=== PATIENT | male | born 1955 | race Caucasian/White ===

== ENCOUNTER 2017-01-14 15:16 | Emergency (ER) | payer MEDICARE, OTHER ==
[2017-01-14 15:55] VITALS: BP 132/88
--- NOTE | 2017-01-14 16:23 | EDM.PDOC ---
ED HPI GI/ABDOMINAL - General Chief Complaint: Genitourinary Problem Stated Complaint: KIDNEY STONES Time Seen by Provider: 01/14/17 16:15 Source: Reports: Patient, RN notes reviewed History Limitations: Reports: No limitations - History of Present Illness INITIAL COMMENTS - FREE TEXT/NARRATIVE: 61-year-old gentleman presents emergency department they sent over by his primary care provider in the clinic he presented with right-sided flank pain and hematuria he does have a known history of nephrolithiasis, he's been ill for the last 3 days has had nausea no vomiting however he feels the pain has improved since he's arrived in the emergency department - Related Data Allergies/ADRs: Allergies Allergy/AdvReac Type Severity Reaction Status Date / Time influenza virus vaccine, Allergy Fever Verified 01/14/17 16:04 specific [Influenza Virus Vacc,Specific] lamivudine [From Epivir] Allergy unknown Verified 01/14/17 16:04 lopinavir [From Kaletra] Allergy Rash Verified 01/14/17 16:04 metoclopramide HCl Allergy Cannot Verified 01/14/17 16:04 [From Reglan] Remember nevirapine [From Viramune] Allergy unknown Verified 01/14/17 16:04 NSAIDS (Non-Steroidal Allergy Renal Verified 01/14/17 16:04 Anti-Inflamma Failure ritonavir [From Kaletra] Allergy Rash Verified 01/14/17 16:04 Sulfa (Sulfonamide Allergy Itching Verified 01/14/17 16:04 Antibiotics) alprazolam [From Xanax] AdvReac Depression Verified 01/14/17 16:04 efavirenz [From Sustiva] AdvReac "Can't Verified 01/14/17 16:04 Walk, Bad Dreams" esomeprazole magnesium AdvReac Headache Verified 01/14/17 16:04 [From Nexium] indinavir sulfate AdvReac kidney Verified 01/14/17 16:04 [From Crixivan] stones sertraline HCl [From Zoloft] AdvReac suicidal Verified 01/14/17 16:04 Home Meds: Home Meds Alendronate [Fosamax] 70 mg PO Q7D@0600 01/29/14 [History] Emtricitabine/Tenofovir [Truvada 200 MG-300 MG] 1 tab PO DAILY 01/29/14 [History ] Gabapentin [Neurontin] 300 mg PO TID 01/29/14 [History] Lisinopril 5 mg PO DAILY 01/29/14 [History] Ondansetron [Zofran ODT] 8 mg PO Q6H PRN 01/29/14 [History] Raltegravir [Isentress] 400 mg PO BID 01/29/14 [History] Omeprazole [Omeprazole] 40 mg PO DAILY 03/16/15 [History] SUMAtriptan Succinate [Imitrex] 100 mg PO ASDIRECTED PRN 03/16/15 [History] Verapamil HCl [Verapamil Sr] 1 tab PO DAILY 11/26/15 [History] Escitalopram [Lexapro] 20 mg PO DAILY 08/03/16 [History] Past Medical History Cardiovascular History: Reports: Hypertension Respiratory History: Reports: COPD, Pneumothorax Other Respiratory History: "little bit of damage on left lung" unknown exactly what it is but does not cause issues Gastrointestinal History: Reports: Other (see below) Other Gastrointestinal History: gastroparesis Genitourinary History: Reports: Renal calculus, STD, UTI, recurrent Musculoskeletal History: Reports: Osteoporosis Neurological History: Reports: Concussion, Migraines, Neuropathy, peripheral, Other (see below) Other Neuro History: trace elements of Multiple Sclerosis Psychiatric History: Reports: Depression Endocrine/Metabolic History: Reports: Other (see below) Other Endocrine/Metabolic History: due to stomach not emptying, pancreas secrete too much insulin and pt gets hypo - pt is seeing surgeon at [facility] regarding this. Hematologic History: Reports: Iron deficiency Other Hematologic History: iron infusion Immunologic History: Reports: HIV, Other (see below) Other Immunologic History: Hep A & B Oncologic (Cancer) History: Reports: None Dermatologic History: Reports: None - Infectious Disease History Infectious Disease History: Reports: Hepatitis A, Hepatitis B, HIV-Human immunodeficiency virus - Past Surgical History Head Surgeries/Procedures: Reports: None GI Surgical History: Reports: Hernia, abdominal, Hernia, inguinal Male Surgical History: Reports: Kidney stone extraction, Prostate Biopsy Social & Family History - Tobacco Use Smoking Status *Q: Never Smoker Years of Tobacco use: 20 Used Tobacco, but Quit: Yes Month Tobacco Last Used: 2003 Second Hand Smoke Exposure: Yes - Alcohol Use Days Per Week of Alcohol Use: 0 - Recreational Drug Use Recreational Drug Use: No ED ROS GENERAL - Review of Systems Review Of Systems: See Below Constitutional: Reports: no symptoms Respiratory: Reports: no symptoms Cardiovascular: Reports: No symptoms GI/Abdominal: Reports: Nausea : Reports: flank pain, hematuria Musculoskeletal: Reports: no symptoms Skin: Reports: no symptoms ED EXAM, GI/ABD - Physical Exam Exam: See Below Exam Limited By: No limitations General Appearance: alert, WD/WN, no apparent distress Neck: normal inspection, supple, non-tender, full range of motion Respiratory/Chest: no respiratory distress, lungs clear, normal breath sounds, no accessory muscle use, chest non-tender Cardiovascular: normal peripheral pulses, regular rate, rhythm, no murmur GI/Abdominal: soft, no organomegaly, no distention, no abnormal bruit, no mass, tenderness (right flank) Course - Vital Signs Last Recorded V/S: Last Vital Signs Temp 97.2 F 01/14/17 16:02 Pulse 82 01/14/17 16:02 Resp 16 01/14/17 16:02 BP 132/88 01/14/17 16:02 Pulse Ox 98 01/14/17 16:02 - Orders/Labs/Meds Orders: Active Orders 24 hr Category Date Time Status Abdomen Pelvis wo Cont [CT] Stat Exams 01/14/17 16:20 Taken CULTURE URINE [RM] Urgent Lab 01/14/17 18:15 Ordered Labs: Laboratory Tests 01/14/17 01/14/17 01/14/17 Range/Units 16:29 16:30 16:30 WBC 10.3 (4.5-11.0) K/uL RBC 4.31 (4.30-5.90) M/uL Hgb 13.5 (12.0-15.0) g/dL Hct 40.3 (40.0-54.0) % MCV 94 (80-98) fL MCH 31 (27-31) pg MCHC 34 (32-36) % Plt Count 245 (150-400) K/uL Neut % (Auto) 68 H (36-66) % Lymph % (Auto) 23 L (24-44) % Clare % (Auto) 8 H (2-6) % Eos % (Auto) 1 L (2-4) % Baso % (Auto) 0 (0-1) % Sodium 139 L (140-148) mmol/L Potassium 4.0 (3.6-5.2) mmol/L Chloride 105 (100-108) mmol/L Carbon Dioxide 26 (21-32) mmol/L Anion Gap 12.0 (5.0-14.0) mmol/L BUN 14 (7-18) mg/dL Creatinine 1.3 (0.8-1.3) mg/dL Est Cr Clr Drug Dosing 45.50 mL/min Estimated GFR (MDRD) 56 L (>60) Glucose 96 (74-106) mg/dL Calcium 8.5 (8.5-10.1) mg/dL Urine Color Yellow Urine Appearance Turbid Urine pH 6.0 (4.5-8.0) Ur Specific [place] 1.010 (1.008-1.030) Urine Protein Trace (NEGATIVE) mg/dL Urine Glucose (UA) Normal (NEGATIVE) mg/dL Urine Ketones Negative (NEGATIVE) mg/dL Urine Occult Blood Large (NEGATIVE) Urine Nitrite Negative (NEGAITVE) Urine Bilirubin Negative (NEGATIVE) Urine Urobilinogen Normal (NORMAL) mg/dL Ur Leukocyte Esterase Large (NEGATIVE) Urine RBC 50-75 H (0-5) Urine WBC >100 H (0-5) Ur Epithelial Cells Rare Amorphous Sediment Rare Urine Bacteria Rare Urine Mucus Rare Departure - Departure Time of Disposition: 18:20 Disposition: Home, Self-Care 01 Condition: good Clinical Impression: UTI, Urinary tract infectious disease Forms: ED Department Discharge Additional Instructions: take full course of antibiotics, Please followup with your primary care provider in 3-5 days if not better, please call return to the emergency department with worsening of symptoms. - My Orders Last 24 Hours: My Active Orders 01/14/17 16:20 Abdomen Pelvis wo Cont [CT] Stat 01/14/17 18:15 CULTURE URINE [RM] Urgent - Assessment/Plan Last 24 Hours: My Active Orders 01/14/17 16:20 Abdomen Pelvis wo Cont [CT] Stat 01/14/17 18:15 CULTURE URINE [RM] Urgent Plan: Assessment Acuity = acute Site and laterality = urinary tract infection Etiology = suspicious for bacterial cause Manifestations =dysuria Location of injury = [home Lab values = CBC within normal limits sodium low at 139 consistent hyponatremia urinalysis reveals 50-70 rbc's consistent with hematuria greater than 100 WBCs consistent with pyuria culture is pending, CT scan shows no acute process Plan I did review lab results and CT scan with him he was on ciprofloxacin about a month ago for a dental infection and he has an allergy to sulfa elected to treat him with Levaquin 500 mg daily x5 days, follow up with primary care 3-5 days if no improvement Patient was in agreement with the plan all questions were answered, they were instructed to return to the emergency department or call for worsening symptoms. This note was dictated using [employer] voice recognition software please call with any questions.
== END 2017-01-14 18:35 | disposition home or self-care (01) ==
LOC: JP.ED 15:16
DX: N39.0 Urinary tract infection, site not specified (principal); I10 Essential (primary) hypertension; J44.9 Chronic obstructive pulmonary disease, unspecified; F32.9 Major depressive disorder, single episode, unspecified; E61.1 Iron deficiency; B20 Human immunodeficiency virus [HIV] disease; Z79.899 Other long term (current) drug therapy; Z88.8 Allergy status to other drugs, medicaments and biological substances; Z86.19 Personal history of other infectious and parasitic diseases
CPT/HCPCS: 36415; 74176; 80048; 81001; 85025; 87086; 99283; 99284-25

== ENCOUNTER 2017-03-30 09:42 | Emergency (ER) | payer MEDICARE, OTHER ==
[2017-03-30 10:17] VITALS: BP 140/99
[2017-03-30] MEDS ORDERED: Bacitracin Oint 1 GM U/D Packet TOP ONE (10:41)
--- NOTE | 2017-03-30 10:44 | EDM.PDOC ---
ED HPI GENERAL MEDICAL PROBLEM - General Chief Complaint: Bite:Animal, Insect Stated Complaint: R LEG INSECT BITE Time Seen by Provider: 03/30/17 10:13 Source of Information: Reports: Patient History Limitations: Reports: No Limitations - History of Present Illness INITIAL COMMENTS - FREE TEXT/NARRATIVE: Patient noticed a lesions on the inner aspect of the right thigh. He thought it might have been a mosquito bite. And now appears that he did have a spider bite. Onset: Unknown/Unsure Duration: Hour(s):, Constant Location: Reports: Lower Extremity, Right Quality: Reports: Other (Firmness redness mild tenderness) Severity: Mild Improves with: Reports: None Worsens with: Reports: None Context: Reports: Other (Outside activity, moving a woodpile) Associated Symptoms: Reports: No Other Symptoms Right Leg Pain Score (Numeric/FACES): 3 - Related Data Allergies Allergy/AdvReac Type Severity Reaction Status Date / Time influenza virus vaccine, Allergy Fever Verified 03/30/17 10:00 specific [Influenza Virus Vacc,Specific] lamivudine [From Epivir] Allergy unknown Verified 03/30/17 10:00 lopinavir [From Kaletra] Allergy Rash Verified 03/30/17 10:00 metoclopramide HCl Allergy Cannot Verified 03/30/17 10:00 [From Reglan] Remember nevirapine [From Viramune] Allergy unknown Verified 03/30/17 10:00 NSAIDS (Non-Steroidal Allergy Renal Verified 03/30/17 10:00 Anti-Inflamma Failure ritonavir [From Kaletra] Allergy Rash Verified 03/30/17 10:00 Sulfa (Sulfonamide Allergy Itching Verified 03/30/17 10:00 Antibiotics) alprazolam [From Xanax] AdvReac Depression Verified 03/30/17 10:00 efavirenz [From Sustiva] AdvReac "Can't Verified 03/30/17 10:00 Walk, Bad Dreams" esomeprazole magnesium AdvReac Headache Verified 03/30/17 10:00 [From Nexium] indinavir sulfate AdvReac kidney Verified 03/30/17 10:00 [From Crixivan] stones sertraline HCl [From Zoloft] AdvReac suicidal Verified 03/30/17 10:00 Home Meds: Home Meds Alendronate [Fosamax] 70 mg PO Q7D@0600 01/29/14 [History] Gabapentin [Neurontin] 300 mg PO TID 01/29/14 [History] Lisinopril 5 mg PO DAILY 01/29/14 [History] Ondansetron [Zofran ODT] 8 mg PO Q6H PRN 01/29/14 [History] Raltegravir [Isentress] 400 mg PO BID 01/29/14 [History] Omeprazole [Omeprazole] 40 mg PO DAILY 03/16/15 [History] SUMAtriptan Succinate [Imitrex] 100 mg PO ASDIRECTED PRN 03/16/15 [History] DULoxetine [Cymbalta] 30 mg PO DAILY 03/30/17 [History] Emtricitabine/Tenofov Alafenam [Descovy 200-25 mg Tablet] 1 tab PO DAILY [History] Metoprolol Succinate [Toprol XL 100mg] 1 tab PO BEDTIME 03/30/17 [History] Past Medical History HEENT History: Reports: Impaired Vision Cardiovascular History: Reports: Hypertension Respiratory History: Reports: COPD, Pneumothorax Other Respiratory History: "little bit of damage on left lung" unknown exactly what it is but does not cause issues emphesema Gastrointestinal History: Reports: Other (See Below) Other Gastrointestinal History: gastroporesis Genitourinary History: Reports: Acute Renal Failure, Renal Calculus, STD, UTI, Recurrent Musculoskeletal History: Reports: Osteoporosis Neurological History: Reports: Concussion, Migraines, Neuropathy, Peripheral, Other (See Below) Other Neuro History: trace elements of Multiple Sclerosis Psychiatric History: Reports: Depression Endocrine/Metabolic History: Reports: Other (See Below) Other Endocrine/Metabolic History: HIV hepititis A and B Hematologic History: Reports: Iron Deficiency Other Hematologic History: iron infusion Immunologic History: Reports: HIV, Other (See Below) Other Immunologic History: Hep A & B Oncologic (Cancer) History: Reports: None Dermatologic History: Reports: None - Infectious Disease History Infectious Disease History: Reports: Chicken Pox, Measles, Mumps, Shingles - Past Surgical History Head Surgeries/Procedures: Reports: None GI Surgical History: Reports: Hernia, Abdominal, Hernia, Inguinal Male Surgical History: Reports: Kidney Stone Extraction, Prostate Biopsy Social & Family History - Tobacco Use Smoking Status *Q: Never Smoker Years of Tobacco use: 20 Used Tobacco, but Quit: Yes Month Tobacco Last Used: 2003 Second Hand Smoke Exposure: Yes - Caffeine Use Caffeine Use: Reports: Coffee, Tea - Alcohol Use Days Per Week of Alcohol Use: 1 Number of Drinks Per Day: 2 Total Drinks Per Week: 2 - Recreational Drug Use Recreational Drug Use: No ED ROS GENERAL - Review of Systems Review Of Systems: See Below Constitutional: Reports: No Symptoms HEENT: Reports: No Symptoms Respiratory: Reports: No Symptoms Cardiovascular: Reports: No Symptoms Endocrine: Reports: No Symptoms GI/Abdominal: Reports: No Symptoms : Reports: No Symptoms Musculoskeletal: Reports: No Symptoms Skin: Reports: Lesions Neurological: Reports: No Symptoms ED EXAM, ANIMAL BITE - Physical Exam Exam: See Below Exam Limited By: No Limitations General Appearance: Alert, WD/WN, Anxious, Mild Distress Eye Exam: Bilateral Eye: Normal Inspection Ears: Normal External Exam, Hearing Grossly Normal Nose: Normal Inspection Throat/Mouth: Normal Inspection, Normal Lips, Normal Voice Head: Atraumatic, Normocephalic Neck: Normal Inspection, Supple Respiratory/Chest: No Respiratory Distress Cardiovascular: Normal Peripheral Pulses, Regular Rate, Rhythm GI/Abdominal: Soft Extremities: Normal Inspection (With the exception of the spider bite inner aspect of the right thigh) Neurological: Alert, Oriented, Normal Cognition Psychiatric: Normal Affect, Normal Mood Skin Exam: Normal Color, Warm/Dry, Other (Spider bite area or induration erythema and central tissue breakdown) Course - Vital Signs Last Recorded V/S: Last Vital Signs Temp 96.5 F 03/30/17 10:16 Pulse 59 L 03/30/17 10:16 Resp 16 03/30/17 10:16 BP 140/99 H 03/30/17 10:16 Pulse Ox 100 03/30/17 10:16 - Orders/Labs/Meds Meds: Medications Discontinued Medications Generic Name Dose Route Start Last Admin Trade Name Freq PRN Reason Stop Dose Admin Bacitracin 1 dose 03/30/17 10:41 03/30/17 10:47 Bacitracin Oint 1 Gm TOP 03/30/17 10:42 1 dose ONETIME ONE Administration Departure - Departure Time of Disposition: 10:46 Disposition: Home, Self-Care 01 Condition: good Clinical Impression: Insect bite - Discharge Information Referrals: Yuri Reyes MD [Primary Care Provider] - Forms: ED Department Discharge Additional Instructions: Patient has a lesion on the inner aspect of the right thigh. The central area appears to be tissue destruction in the area of induration and erythema around it this is consistent with a spider bite. The wound is covered with bacitracin and Band-Aid and the patient placed on Keflex 500 mg 4 times a day for 10 days patient discharged to home Reevaluation is indicated if there is failure to respond to treatment plan. - Problem List & Annotations (1) Insect bite SNOMED Code(s): 705072087 Code(s): W57.XXXA - BIT/STUNG BY NONVENOM INSECT & OTH NONVENOM ARTHROPODS, INIT Status: Acute Priority: Low Current Visit: Yes Qualifiers: Encounter type: initial encounter Qualified Code(s): W57.XXXA - Bitten or stung by nonvenomous insect and other nonvenomous arthropods, initial encounter - Problem List Review Problem List Initiated/Reviewed/Updated: Yes
== END 2017-03-30 11:00 | disposition home or self-care (01) ==
LOC: JP.ED 09:42
DX: S70.361A Insect bite (nonvenomous), right thigh, initial encounter (principal); J44.9 Chronic obstructive pulmonary disease, unspecified; F32.9 Major depressive disorder, single episode, unspecified; Z87.442 Personal history of urinary calculi; Z98.890 Other specified postprocedural states; Z79.899 Other long term (current) drug therapy; Z88.2 Allergy status to sulfonamides; Z88.8 Allergy status to other drugs, medicaments and biological substances; W57.XXXA Bitten or stung by nonvenomous insect and other nonvenomous arthropods, initial encounter
CPT/HCPCS: 99282; 99283

== ENCOUNTER 2017-11-28 17:35 | Emergency (ER) | payer MEDICARE, OTHER ==
--- NOTE | 2017-11-28 21:18 | EDM.PDOC ---
ED HPI GENERAL MEDICAL PROBLEM - General Chief Complaint: Chest Pain Stated Complaint: CHEST PAINS Time Seen by Provider: 11/28/17 18:14 Source of Information: Reports: Patient History Limitations: Reports: No Limitations - History of Present Illness INITIAL COMMENTS - FREE TEXT/NARRATIVE: This gentleman came in complaining of some chest pain which is been going on for a week or more. He said it is a sharp stabbing chest pain it's in the left upper pectoral region. Occasionally he awakens with some shortness of breath sweats and headache. The pain is worsened by movement. Coughing or deep breathing also hurts. He denies any history of heart disease. He does have emphysema he quit smoking in 2003 after about a 10 year pack history Chest Pain Score (Numeric/FACES): 3 - Related Data Allergies Allergy/AdvReac Type Severity Reaction Status Date / Time influenza virus vaccine, Allergy Fever Verified 11/28/17 17:59 specific [Influenza Virus Vacc,Specific] lamivudine [From Epivir] Allergy unknown Verified 11/28/17 17:59 lopinavir [From Kaletra] Allergy Rash Verified 11/28/17 17:59 metoclopramide HCl Allergy Cannot Verified 11/28/17 17:59 [From Reglan] Remember nevirapine [From Viramune] Allergy unknown Verified 11/28/17 17:59 NSAIDS (Non-Steroidal Allergy Renal Verified 11/28/17 17:59 Anti-Inflamma Failure ritonavir [From Kaletra] Allergy Rash Verified 11/28/17 17:59 Sulfa (Sulfonamide Allergy Itching Verified 11/28/17 17:59 Antibiotics) alprazolam [From Xanax] AdvReac Depression Verified 11/28/17 17:59 aspirin AdvReac Other Verified 11/28/17 17:59 efavirenz [From Sustiva] AdvReac "Can't Verified 11/28/17 17:59 Walk, Bad Dreams" esomeprazole magnesium AdvReac Headache Verified 11/28/17 17:59 [From Nexium] indinavir sulfate AdvReac kidney Verified 11/28/17 17:59 [From Crixivan] stones sertraline HCl [From Zoloft] AdvReac suicidal Verified 11/28/17 17:59 Home Meds: Home Meds Alendronate [Fosamax] 70 mg PO Q7D@0600 01/29/14 [History] Gabapentin [Neurontin] 600 mg PO QID 01/29/14 [History] Lisinopril 5 mg PO DAILY 01/29/14 [History] Ondansetron [Zofran ODT] 8 mg PO Q6H PRN 01/29/14 [History] Raltegravir [Isentress] 400 mg PO BID 01/29/14 [History] Omeprazole [Omeprazole] 40 mg PO DAILY 03/16/15 [History] SUMAtriptan Succinate [Imitrex] 100 mg PO ASDIRECTED PRN 03/16/15 [History] Emtricitabine/Tenofov Alafenam [Descovy 200-25 mg Tablet] 1 tab PO DAILY [History] Metoprolol Succinate [Toprol XL 100mg] 1 tab PO BEDTIME 03/30/17 [History] FLUoxetine HCl [Fluoxetine HCl] 1 tab PO DAILY 11/28/17 [History] Finasteride [Finasteride] 1 tab PO DAILY 11/28/17 [History] Topiramate [Topiramate] 1 tab PO BEDTIME 11/28/17 [History] Past Medical History HEENT History: Reports: Impaired Vision Cardiovascular History: Reports: Hypertension Respiratory History: Reports: COPD, Pneumothorax Other Respiratory History: empheysema Gastrointestinal History: Reports: Other (See Below) Other Gastrointestinal History: gastroporesis Genitourinary History: Reports: Renal Calculus, STD, UTI, Recurrent, Other (See Below) Other Genitourinary History: "kidney damage". Musculoskeletal History: Reports: Fracture, Osteoporosis Neurological History: Reports: Concussion, Migraines, MS, Neuropathy, Peripheral , Other (See Below) Other Neuro History: trace elements of Multiple Sclerosis Psychiatric History: Reports: Anxiety, Depression Endocrine/Metabolic History: Reports: Other (See Below) Other Endocrine/Metabolic History: "hypoglycemic" Hematologic History: Reports: Iron Deficiency Other Hematologic History: iron infusion Immunologic History: Reports: HIV, Other (See Below) Other Immunologic History: Hep A & B Oncologic (Cancer) History: Reports: None Dermatologic History: Reports: None - Infectious Disease History Infectious Disease History: Reports: Chicken Pox, Measles, Mumps, Shingles - Past Surgical History GI Surgical History: Reports: Hernia, Abdominal, Hernia, Inguinal, Darline Fundoplication Male Surgical History: Reports: Kidney Stone Extraction, Prostate Biopsy, Other (See Below) Other Male Surgeries/Procedures: "scraped prostate" Social & Family History - Tobacco Use Smoking Status *Q: Never Smoker Years of Tobacco use: 20 Used Tobacco, but Quit: Yes Month Tobacco Last Used: 2003 Second Hand Smoke Exposure: Yes - Caffeine Use Caffeine Use: Reports: Coffee, Tea - Alcohol Use Days Per Week of Alcohol Use: 1 Number of Drinks Per Day: 2 Total Drinks Per Week: 2 - Recreational Drug Use Recreational Drug Use: No ED ROS GENERAL - Review of Systems Review Of Systems: ROS reveals no pertinent complaints other than HPI. ED EXAM, GENERAL - Physical Exam Exam: See Below Exam Limited By: No Limitations General Appearance: Alert, WD/WN, No Apparent Distress Eye Exam: Bilateral Eye: Normal Inspection Throat/Mouth: Normal Oropharynx Head: Atraumatic Neck: Normal Inspection Respiratory/Chest: Lungs Clear, Other (Mild tenderness in the left upper pectoral region) Cardiovascular: Normal Peripheral Pulses, Regular Rate, Rhythm, No Murmur Neurological: Alert, Oriented Skin Exam: Warm, Dry Course - Vital Signs Last Recorded V/S: Last Vital Signs Temp 35.1 C L 11/28/17 17:58 Pulse 56 L 11/28/17 20:51 Resp 16 11/28/17 20:51 BP 124/90 11/28/17 21:43 Pulse Ox 95 11/28/17 20:51 The popliteal - Orders/Labs/Meds Orders: Active Orders 24 hr Category Date Time Status EKG Documentation Completion [RC] ASDIRECTED Care 11/28/17 18:15 Active EKG 12 Lead [EK] Urgent Ther 11/28/17 18:15 Ordered Labs: Laboratory Tests 11/28/17 11/28/17 Range/Units 19:18 19:18 WBC 4.6 (4.5-11.0) K/uL RBC 4.10 L (4.30-5.90) M/uL Hgb 12.3 (12.0-15.0) g/dL Hct 38.5 L (40.0-54.0) % MCV 94 (80-98) fL MCH 30 (27-31) pg MCHC 32 (32-36) % Plt Count 192 (150-400) K/uL Neut % (Auto) 46 (36-66) % Lymph % (Auto) 42 (24-44) % [place] % (Auto) 9 H (2-6) % Eos % (Auto) 2 (2-4) % Baso % (Auto) 0 (0-1) % Sodium 142 (140-148) mmol/L Potassium 4.3 (3.6-5.2) mmol/L Chloride 108 (100-108) mmol/L Carbon Dioxide 27 (21-32) mmol/L Anion Gap 7.2 (5.0-14.0) mmol/L BUN 14 (7-18) mg/dL Creatinine 1.4 H (0.8-1.3) mg/dL Est Cr Clr Drug Dosing 41.71 mL/min Estimated GFR (MDRD) 51 L (>60) Glucose 106 (74-106) mg/dL Calcium 8.6 (8.5-10.1) mg/dL Total Bilirubin 0.5 (0.2-1.0) mg/dL AST 20 (15-37) U/L ALT 16 (12-78) U/L Alkaline Phosphatase 38 L (46-116) U/L Troponin I < 0.017 (0.000-0.056) ng/mL Total Protein 6.3 L (6.4-8.2) g/dL Albumin 3.3 L (3.4-5.0) g/dL Globulin 3.0 (2.3-3.5) g/dL Albumin/Globulin Ratio 1.1 L (1.2-2.2) - Re-Assessments/Exams Free Text/Narrative Re-Assessment/Exam: 11/29/17 18:48 An EKG shows normal sinus rhythm at 57 bpm there is an old inferior NV. I do see a prominent R wave in V1 not seen before but I don't think this represents a posterior NV. Labs are unremarkable. A chest x-ray is unremarkable. This patient did not require any kind of pain medication during this ER visit he continued to have occasional sharp stabbing pains associated with movement I don't think this represents acute coronary syndrome or other serious pathology such as pulmonary embolus. Further diagnostic studies were not warranted.. 11/29/17 18:49 Departure - Departure Time of Disposition: 21:17 Disposition: Home, Self-Care 01 Condition: Fair Clinical Impression: Chest wall pain Instructions: Chest Wall Pain, [id number] Referrals: Yuri Reyes MD [Primary Care Provider] - Forms: ED Department Discharge Additional Instructions: This appears to be just some inflammation in your chest wall and the ribs are the nerves associated with each rib. This is not any kind of a heart problem. You don't really need to do anything different you could use some Tylenol if you want for the pain. If you're unable to take ibuprofen been on a small dose of that may also help. Follow-up with your Dr. if no better in a few days - My Orders Last 24 Hours: My Active Orders 11/28/17 18:15 EKG Documentation Completion [RC] ASDIRECTED EKG 12 Lead [EK] Urgent - Assessment/Plan Last 24 Hours: My Active Orders 11/28/17 18:15 EKG Documentation Completion [RC] ASDIRECTED EKG 12 Lead [EK] Urgent
[2017-11-28 21:44] VITALS: BP 124/90
--- NOTE | 2017-11-29 08:43 | CR ---
Chest 2V INDICATION: pain FINDINGS: Comparison 03/27/2016. No change. Negative chest.
== END 2017-11-28 21:49 | disposition home or self-care (01) ==
LOC: JP.ED 17:35
DX: R07.89 Other chest pain (principal); I10 Essential (primary) hypertension; J44.9 Chronic obstructive pulmonary disease, unspecified; B20 Human immunodeficiency virus [HIV] disease; Z87.891 Personal history of nicotine dependence; Z88.6 Allergy status to analgesic agent; Z88.8 Allergy status to other drugs, medicaments and biological substances; Z88.1 Allergy status to other antibiotic agents; Z88.2 Allergy status to sulfonamides; Z88.7 Allergy status to serum and vaccine
CPT/HCPCS: 36415; 71046; 71046-26; 80053; 84484; 85025; 93005; 93010; 99283; 99285-25

== ENCOUNTER 2018-07-31 19:27 | Emergency (ER) | payer MEDICARE, OTHER ==
[2018-07-31 19:39] VITALS: BP 131/96
--- NOTE | 2018-07-31 20:31 | EDM.PDOC ---
ED HPI GENERAL MEDICAL PROBLEM - General Chief Complaint: Chest Pain Stated Complaint: FELL Time Seen by Provider: 07/31/18 20:00 Source of Information: Reports: Patient, EMS History Limitations: Reports: No Limitations - History of Present Illness INITIAL COMMENTS - FREE TEXT/NARRATIVE: 63-year-old male stumbled over his dog falling onto his chest and face. He had significant discomfort in the anterior chest wall, with pain with breathing so called the ambulance. His perfectly stable, when I went in to evaluate the patient was watching TV and looked to be in no distress. He is still complaining of some anterior chest discomfort especially with breathing. There is no injury to his head or face. No loss of consciousness. He did receive fentanyl for pain in route. Onset: Sudden Duration: Hour(s): (Within the last hour) Location: Reports: Chest Severity: Mild Anterior Chest Pain Score (Numeric/FACES): 4 - Related Data Allergies Allergy/AdvReac Type Severity Reaction Status Date / Time duloxetine [From Cymbalta] Allergy Other Verified 05/29/18 06:39 indinavir [From Crixivan] Allergy Cannot Verified 05/29/18 06:39 Remember influenza virus vaccine, Allergy Fever Verified 05/29/18 06:39 specific [Influenza Virus Vacc,Specific] lamivudine [From Epivir] Allergy unknown Verified 05/29/18 06:39 lopinavir [From Kaletra] Allergy Rash Verified 05/29/18 06:39 metoclopramide HCl Allergy Cannot Verified 05/29/18 06:39 [From Reglan] Remember nevirapine [From Viramune] Allergy unknown Verified 05/29/18 06:39 ritonavir [From Kaletra] Allergy Rash Verified 05/29/18 06:39 Sulfa (Sulfonamide Allergy Itching Verified 05/29/18 06:39 Antibiotics) alprazolam [From Xanax] AdvReac Depression Verified 05/29/18 06:39 aspirin AdvReac Other Verified 05/29/18 06:39 efavirenz [From Sustiva] AdvReac "Can't Verified 05/29/18 06:39 Walk, Bad Dreams" esomeprazole AdvReac Headache Verified 05/29/18 08:00 esomeprazole magnesium AdvReac Headache Verified 05/29/18 06:39 [From Nexium] indinavir sulfate AdvReac kidney Verified 05/29/18 06:39 [From Crixivan] stones NSAIDS (Non-Steroidal AdvReac Renal Verified 05/29/18 08:00 Anti-Inflamma Failure sertraline HCl [From Zoloft] AdvReac suicidal Verified 05/29/18 06:39 Home Meds: Home Meds Alendronate [Fosamax] 70 mg PO Q7D@0600 01/29/14 [History] Gabapentin [Neurontin] 600 mg PO QID 01/29/14 [History] Lisinopril 2.5 mg PO DAILY 01/29/14 [History] Ondansetron [Zofran ODT] 8 mg PO Q6H PRN 01/29/14 [History] Raltegravir [Isentress] 400 mg PO BID 01/29/14 [History] Omeprazole 40 mg PO DAILY 03/16/15 [History] SUMAtriptan Succinate [Imitrex] 100 mg PO ASDIRECTED PRN 03/16/15 [History] Emtricitabine/Tenofov Alafenam [Descovy 200-25 mg Tablet] 20 - 200 mg PO DAILY 03/30/17 [History] FLUoxetine HCl [Fluoxetine HCl] 40 mg PO DAILY 11/28/17 [History] Finasteride 5 mg PO DAILY 11/28/17 [History] Topiramate 50 mg PO BEDTIME 11/28/17 [History] Acetaminophen/Caff/Dihydrocod [Auiwjiaq-Xmxd-Salvewsoxk 320.5] 1 tab PO DAILY PRN 05/27/18 [History] Albuterol Sulfate [Proventil Hfa] 2 puff INH QID PRN 05/27/18 [History] Calcium Carbonate/Vitamin D3 [Calcium 600 + Vit D 200] 200 - 600 mg PO BID 05/27 [History] Past Medical History HEENT History: Reports: Impaired Vision, Other (See Below) Other HEENT History: wears glasses Cardiovascular History: Reports: Hypertension Respiratory History: Reports: COPD, Pneumothorax, Sleep Apnea Other Respiratory History: emphysema Gastrointestinal History: Reports: GERD, Hepatitis, Pancreatitis, Other (See Below) Other Gastrointestinal History: gastroporesis, Farris's esophagus, hepatitis. A&B Genitourinary History: Reports: Renal Calculus, STD, UTI, Recurrent, Other (See Below) Other Genitourinary History: "kidney damage". Musculoskeletal History: Reports: Back Pain, Chronic, Fracture, Osteoporosis Neurological History: Reports: Concussion, Migraines, MS, Neuropathy, Peripheral , Other (See Below) Other Neuro History: trace elements of Multiple Sclerosis, botox for migraines Psychiatric History: Reports: Anxiety, Depression Endocrine/Metabolic History: Reports: Other (See Below) Other Endocrine/Metabolic History: "hypoglycemic" Hematologic History: Reports: Anemia, Iron Deficiency Other Hematologic History: iron infusion Immunologic History: Reports: HIV, Other (See Below) Other Immunologic History: Hep A & B Oncologic (Cancer) History: Reports: None Dermatologic History: Reports: None - Infectious Disease History Infectious Disease History: Reports: Hepatitis A, Hepatitis B, HIV-Human Immunodeficiency Virus - Past Surgical History Head Surgeries/Procedures: Reports: None GI Surgical History: Reports: EGD, Hernia, Abdominal, Hernia, Inguinal, Darline Fundoplication Male Surgical History: Reports: Kidney Stone Extraction, Prostate Biopsy, Other (See Below) Other Male Surgeries/Procedures: "scraped prostate" Social & Family History - Tobacco Use Smoking Status *Q: Former Smoker Used Tobacco, but Quit: Yes Month/Year Tobacco Last Used: 2003 - Caffeine Use Caffeine Use: Reports: Coffee - Alcohol Use Days Per Week of Alcohol Use: 1 Number of Drinks Per Day: 1 Total Drinks Per Week: 1 - Recreational Drug Use Recreational Drug Use: No ED ROS GENERAL - Review of Systems Review Of Systems: See Below Constitutional: Denies: Fever, Chills HEENT: Denies: Ear Pain Respiratory: Reports: Pleuritic Chest Pain. Denies: Shortness of Breath Cardiovascular: Reports: Chest Pain GI/Abdominal: Denies: Abdominal Pain, Nausea, Vomiting Skin: Denies: Bruising Neurological: Reports: No Symptoms ED EXAM, GENERAL - Physical Exam Exam: See Below Exam Limited By: No Limitations General Appearance: Alert, No Apparent Distress Head: Atraumatic Neck: Supple, Non-Tender Respiratory/Chest: No Respiratory Distress, Lungs Clear, Other (Very tender to palpation along the left parasternal and costal chondral junction, no crepitus or deformity. No tenderness to lateral compression of the chest wall.) Course - Vital Signs Last Recorded V/S: Last Vital Signs Temp 95.1 F L 07/31/18 19:54 Pulse 62 07/31/18 19:54 Resp 16 07/31/18 19:54 BP 131/96 H 07/31/18 19:54 Pulse Ox 99 07/31/18 19:54 - Orders/Labs/Meds Orders: Active Orders 24 hr Category Date Time Status Chest 2V [CR] Routine Exams 07/31/18 20:10 Taken Meds: Medications Discontinued Medications Generic Name Dose Route Start Last Admin Trade Name Tyra PRN Reason Stop Dose Admin Ketorolac Tromethamine 15 mg 07/31/18 21:13 07/31/18 21:21 Toradol IM 07/31/18 21:14 15 mg ONETIME ONE Administration - Re-Assessments/Exams Free Text/Narrative Re-Assessment/Exam: 07/31/18 21:00 Chest x-ray was normal. Patient was reassured this is superficial bruising and should improve with anti-inflammatories, Tylenol and time. He can return if worsening. 07/31/18 21:31 Prior to discharge patient was complaining of some more intense discomfort so he was given 15 mg of IM Toradol. Discussed a CT of his chest to rule out a subtle sternal fracture, however with lateral compression of the chest he had no pain which makes this unlikely. Treatment would not change. He will recheck in the next couple days if he feels he is worsening. Departure - Departure Time of Disposition: 21:32 Disposition: Home, Self-Care 01 Condition: Good Clinical Impression: Contusion of chest wall Qualifiers: Encounter type: initial encounter Laterality: unspecified laterality Qualified Code(s): S20.219A - Contusion of unspecified front wall of thorax, initial encounter - Discharge Information Instructions: Chest Contusion, Adult, [id number] Referrals: PCP,None [Primary Care Provider] - Forms: ED Department Discharge Care Plan Goals: Cool compresses to sore areas, anti-inflammatories such as ibuprofen or naproxen should help. Increase activity as tolerated and consider rechecking in 3-4 days if not improving satisfactorily. Return sooner if worsening such as difficulty breathing or coughing blood. - My Orders Last 24 Hours: My Active Orders 07/31/18 20:10 Chest 2V [CR] Routine - Assessment/Plan Last 24 Hours: My Active Orders 07/31/18 20:10 Chest 2V [CR] Routine
[2018-07-31] MEDS ORDERED: Ketorolac 30 MG/ML SDV IM ONE (21:13)
--- NOTE | 2018-08-01 08:28 | CR ---
CHEST: 2 view CLINICAL HISTORY:Dyspnea COMPARISON:11/28/2017 FINDINGS: The heart size, pulmonary vascular and hilar structures are normal. No infiltrate effusion or pneumothorax is seen. IMPRESSION: No acute cardiopulmonary process.
== END 2018-07-31 21:40 | disposition home or self-care (01) ==
LOC: JP.ED 19:27
DX: S20.219A Contusion of unspecified front wall of thorax, initial encounter (principal); Z87.891 Personal history of nicotine dependence; Z79.899 Other long term (current) drug therapy; Z88.6 Allergy status to analgesic agent; Z88.2 Allergy status to sulfonamides; Z88.8 Allergy status to other drugs, medicaments and biological substances; Z88.7 Allergy status to serum and vaccine; W19.XXXA Unspecified fall, initial encounter
CPT/HCPCS: 71046; 96372; 99285; J1885; 99283

== ENCOUNTER 2019-11-24 06:23 | Day surgery (SDC) | payer MEDICARE, OTHER ==
[2019-11-24] MEDS ORDERED: Sodium Chloride 0.9% 1,000 ML IV SCH (07:00)
[2019-11-24] MEDS ORDERED: Propofol 200 MG/20 ML SDV ONE (07:14)
[2019-11-24] MEDS ORDERED: fentaNYL 100 MCG/2 ML SDV ONE (07:14)
[2019-11-24] MEDS ORDERED: Midazolam 1 MG/ML 2 ML SDV ONE (07:14)
[2019-11-24] MEDS ORDERED: Dextrose 5%-Lactated Ringers 1,000 ML IV SCH (08:00)
[2019-11-24 09:45] VITALS: BP 126/66; PULSE 57
--- NOTE | 2019-11-28 11:00 | OR ---
DATE OF PROCEDURE: 11/24/2019 SURGEON: Prateek Gottlieb MD PROCEDURE: Colonoscopy. INDICATIONS: Screening colonoscopy. RISKS: Risks, benefits, alternatives, and limitations including, but not limited to, infection, bleeding, and perforation were explained to the patient who wished to proceed. PROCEDURE IN DETAIL: The patient was placed in left lateral decubitus position. Digital rectal exam was performed without abnormality. The scope was introduced and advanced atraumatically to the ileocecal valve. Photo was taken of this. The scope was brought back to the ascending, transverse, descending colon, and retroflexed. No evidence of old or new blood. No mass. No polyps. Diverticulosis described as mild, limited to sigmoid colon without diverticulitis or bleeding. No evidence of colitis. The patient tolerated the procedure well. Prateek Gottlieb MD /[id number]
== END 2019-11-24 10:05 | disposition home or self-care (01) ==
LOC: JP.SDS 06:23
PROVIDERS: ATTEND Surgery
DX: Z12.11 Encounter for screening for malignant neoplasm of colon (principal); K57.30 Diverticulosis of large intestine without perforation or abscess without bleeding; K21.9 Gastro-esophageal reflux disease without esophagitis; K22.70 Barrett's esophagus without dysplasia; I12.9 Hypertensive chronic kidney disease with stage 1 through stage 4 chronic kidney disease, or unspecified chronic kidney disease; N18.9 Chronic kidney disease, unspecified; G43.909 Migraine, unspecified, not intractable, without status migrainosus
CPT/HCPCS: 82962; G0121; J2704; J3010; J7121; J2250

== ENCOUNTER 2019-12-20 11:52 | Emergency (ER) | payer MEDICARE, OTHER ==
[2019-12-20 12:23] VITALS: BP 123/91; PULSE 63
[2019-12-20] MEDS ORDERED: Acyclovir 200 MG Cap PO ONE (12:44)
--- NOTE | 2019-12-20 12:52 | EDM.PDOC ---
ED HPI GENERAL MEDICAL PROBLEM - General Chief Complaint: Skin Complaint Stated Complaint: POSSIBLE SHINGLES Time Seen by Provider: 12/20/19 12:37 Source of Information: Reports: Patient, Family, RN Notes Reviewed History Limitations: Reports: No Limitations - History of Present Illness INITIAL COMMENTS - FREE TEXT/NARRATIVE: 64-year-old gentleman presents emergency department today with complaint of rash that is developed predominantly on his shoulder and neck up into the hairline on the left side of his body is been there for the last couple days it is painful and itchy, he states his viral load is undetectable CD4 count is 600 - Related Data Allergies Allergy/AdvReac Type Severity Reaction Status Date / Time duloxetine [From Cymbalta] Allergy Other Verified 12/20/19 12:10 indinavir [From Crixivan] Allergy Cannot Verified 12/20/19 12:10 Remember influenza virus vaccine, Allergy Fever Verified 12/20/19 12:10 specific [Influenza Virus Vacc,Specific] lamivudine [From Epivir] Allergy unknown Verified 12/20/19 12:10 lopinavir [From Kaletra] Allergy Rash Verified 12/20/19 12:10 magnesium Allergy Headache Verified 12/20/19 12:10 metoclopramide HCl Allergy Other Verified 12/20/19 12:10 [From Reglan] nevirapine [From Viramune] Allergy unknown Verified 12/20/19 12:10 ritonavir [From Kaletra] Allergy Rash Verified 12/20/19 12:10 Sulfa (Sulfonamide Allergy Itching Verified 12/20/19 12:10 Antibiotics) alprazolam [From Xanax] AdvReac Depression Verified 12/20/19 12:10 aspirin AdvReac Other Verified 12/20/19 12:10 efavirenz [From Sustiva] AdvReac "Can't Verified 12/20/19 12:10 Walk, Bad Dreams" esomeprazole magnesium AdvReac Headache Verified 12/20/19 12:10 [From Nexium] indinavir sulfate AdvReac kidney Verified 12/20/19 12:10 [From Crixivan] stones NSAIDS (Non-Steroidal AdvReac Renal Verified 12/20/19 12:10 Anti-Inflamma Failure sertraline HCl [From Zoloft] AdvReac suicidal Verified 12/20/19 12:10 Home Meds: Home Meds Alendronate [Fosamax] 70 mg PO Q7D@0600 01/29/14 [History] Gabapentin [Neurontin] 600 mg PO TID 01/29/14 [History] Lisinopril 2.5 mg PO DAILY 01/29/14 [History] Raltegravir [Isentress] 400 mg PO BID 01/29/14 [History] SUMAtriptan Succinate [Imitrex] 100 mg PO ASDIRECTED PRN 03/16/15 [History] Emtricitabine/Tenofov Alafenam [Descovy 200-25 mg Tablet] 1 tab PO DAILY [History] Finasteride 5 mg PO DAILY 11/28/17 [History] Topiramate 50 mg PO BEDTIME 11/28/17 [History] Acetaminophen/Caff/Dihydrocod [Cxfiiyrn-Krua-Vhpuaocyma 320.5] 1 tab PO DAILY PRN 05/27/18 [History] Albuterol Sulfate [Proventil Hfa] 2 puff INH QID PRN 05/27/18 [History] Calcium Carbonate/Vitamin D3 [Calcium 600 + Vit D 200] 200 - 600 mg PO BID 05/27 [History] Acarbose [Precose] 25 mg PO TID 11/16/19 [History] Citalopram [Citalopram HBr] 20 mg PO DAILY 11/16/19 [History] Sildenafil [Viagra] 50 mg PO BEDTIME PRN 11/16/19 [History] Tamsulosin HCl [Flomax] 0.4 mg PO DAILY 11/16/19 [History] polyethylene glycoL 3350 [MiraLAX] 17 gm PO DAILY PRN 11/16/19 [History] Acyclovir 800 mg PO 5XDAY #40 tablet 12/20/19 [Rx] Past Medical History HEENT History: Reports: Impaired Vision, Other (See Below) Other HEENT History: wears glasses Cardiovascular History: Reports: Heart Murmur, Hypertension Respiratory History: Reports: COPD, Pneumothorax, Sleep Apnea Other Respiratory History: emphysema Gastrointestinal History: Reports: GERD, Hemorrhoids, Hepatitis, Pancreatitis, Other (See Below) Other Gastrointestinal History: gastroporesis, Farris's esophagus, hepatitis. A&B Genitourinary History: Reports: Renal Calculus, STD, UTI, Recurrent, Other (See Below) Other Genitourinary History: "kidney damage". Musculoskeletal History: Reports: Back Pain, Chronic, Fracture, Osteoporosis Neurological History: Reports: Concussion, Migraines, MS, Neuropathy, Peripheral , Other (See Below) Other Neuro History: trace elements of Multiple Sclerosis, botox for migraines Psychiatric History: Reports: Anxiety, Depression Endocrine/Metabolic History: Reports: Other (See Below) Other Endocrine/Metabolic History: "hypoglycemic" Hematologic History: Reports: Anemia, Iron Deficiency Other Hematologic History: iron infusion Immunologic History: Reports: HIV, Other (See Below) Other Immunologic History: Hep A & B Oncologic (Cancer) History: Reports: None Dermatologic History: Reports: None - Infectious Disease History Infectious Disease History: Reports: Chicken Pox, Hepatitis A, Hepatitis B, HIV- Human Immunodeficiency Virus, Measles, Mumps - Past Surgical History Head Surgeries/Procedures: Reports: None HEENT Surgical History: Reports: None Cardiovascular Surgical History: Reports: None Respiratory Surgical History: Reports: None GI Surgical History: Reports: Colonoscopy, EGD, Hernia, Abdominal, Hernia, Inguinal, Darline Fundoplication, Other (See Below) Other GI Surgeries/Procedures: PARTIAL GASTRECTOMY AND HEMORRHOID SURGERY Male Surgical History: Reports: Kidney Stone Extraction, Prostate Biopsy, Other (See Below) Other Male Surgeries/Procedures: "scraped prostate" Endocrine Surgical History: Reports: None Neurological Surgical History: Reports: None Musculoskeletal Surgical History: Reports: None Dermatological Surgical History: Reports: None Social & Family History - Family History Family Medical History: Noncontributory - Tobacco Use Smoking Status *Q: Former Smoker Used Tobacco, but Quit: No - Caffeine Use Caffeine Use: Reports: Coffee, Other Other Caffeine Use: other sometime - Recreational Drug Use Recreational Drug Use: No ED ROS GENERAL - Review of Systems Review Of Systems: See Below Constitutional: Reports: No Symptoms Skin: Reports: Rash ED EXAM, SKIN/RASH Exam: See Below Exam Limited By: No Limitations General Appearance: Alert, WD/WN, No Apparent Distress Skin: Warm, Zoster-Like Rash (C4 distribution) Course - Vital Signs Last Recorded V/S: Last Vital Signs Temp 95.6 F L 12/20/19 12:04 Pulse 63 12/20/19 12:04 Resp 16 12/20/19 12:04 BP 123/91 H 12/20/19 12:04 Pulse Ox 99 12/20/19 12:04 - Orders/Labs/Meds Meds: Medications Discontinued Medications Generic Name Dose Route Start Last Admin Trade Name Tyra PRN Reason Stop Dose Admin Acyclovir 1,600 mg 12/20/19 12:44 Zovirax PO 12/20/19 12:45 ONETIME ONE Departure - Departure Time of Disposition: 12:53 Disposition: Home, Self-Care 01 Condition: Fair Clinical Impression: Shingles Qualifiers: Herpes zoster complications: with other complications Qualified Code(s): B02.8 - Zoster with other complications - Discharge Information Prescriptions: Acyclovir 800 mg PO 5XDAY #40 tablet Referrals: Cathleen Fuchs MD [Primary Care Provider] - Additional Instructions: Take full course of acyclovir, please followup with your primary care provider in 3-5 days if not better, please call return to the emergency department with worsening of symptoms. Sepsis Event Note - Evaluation Sepsis Screening Result: No Definite Risk - Focused Exam Vital Signs: Vital Signs Temp Pulse Resp BP Pulse Ox 12/20/19 12:04 95.6 F L 63 16 123/91 H 99 Date Exam was Performed: 12/20/19 Time Exam was Performed: 12:47 - Assessment/Plan Plan: Assessment Acuity = acute Site and laterality = shingles exacerbation C4 distribution Etiology = probable varicella-zoster virus Manifestations = none Location of injury = Home Lab values = none Plan Prescription written for acyclovir 800 mg 5 times a day x10 days follow-up with primary care in 3 to 5 days if no improvement medications faxed to juanita mchugh This note was dictated using [facility] voice recognition software please call with any questions on syntax or grammar.
== END 2019-12-20 13:24 | disposition home or self-care (01) ==
LOC: JP.ED 11:52
DX: B02.8 Zoster with other complications (principal); J43.9 Emphysema, unspecified; I10 Essential (primary) hypertension; F41.9 Anxiety disorder, unspecified; F32.9 Major depressive disorder, single episode, unspecified; Z88.8 Allergy status to other drugs, medicaments and biological substances; Z88.4 Allergy status to anesthetic agent; Z88.2 Allergy status to sulfonamides; Z88.6 Allergy status to analgesic agent; Z87.891 Personal history of nicotine dependence; Z21 Asymptomatic human immunodeficiency virus [HIV] infection status; Z79.899 Other long term (current) drug therapy
CPT/HCPCS: 99282; A9270; 99283

== ENCOUNTER 2020-07-29 15:30 | Emergency (ER) | payer MEDICARE, OTHER ==
[2020-07-29 15:58] VITALS: BP 106/71; PULSE 71
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
--- NOTE | 2020-08-01 09:22 | CR ---
CHEST: 2 view CLINICAL HISTORY:SOB COMPARISON:2018 FINDINGS: The heart size, pulmonary vascularity and hilar structures are normal. No infiltrate effusion or pneumothorax is seen. IMPRESSION: No acute cardiopulmonary process.
== END 2020-07-29 18:08 | disposition home or self-care (01) ==
LOC: JP.ED 15:30
DX: J44.1 Chronic obstructive pulmonary disease with (acute) exacerbation (principal); I10 Essential (primary) hypertension; G62.9 Polyneuropathy, unspecified; F41.9 Anxiety disorder, unspecified; F32.9 Major depressive disorder, single episode, unspecified; G35 Multiple sclerosis; Z88.8 Allergy status to other drugs, medicaments and biological substances; Z88.7 Allergy status to serum and vaccine; Z88.1 Allergy status to other antibiotic agents; Z88.2 Allergy status to sulfonamides; Z88.6 Allergy status to analgesic agent; Z79.899 Other long term (current) drug therapy
CPT/HCPCS: 71046; 71046-26; 99284-25

== ENCOUNTER 2021-08-15 15:21 | Emergency (ER) | payer MEDICARE, OTHER ==
[2021-08-15 17:21] VITALS: BP 124/95; PULSE 101
[2021-08-15] MEDS ORDERED: Acetaminophen 500 MG Tab PO ONE (17:30)
--- NOTE | 2021-08-15 18:32 | EDM.PDOC ---
ED HPI GENERAL MEDICAL PROBLEM - General Chief Complaint: Lower Extremity Injury/Pain Stated Complaint: FALL, INJURED R FOOT Time Seen by Provider: 08/15/21 18:30 Source of Information: Reports: Patient, Family History Limitations: Reports: No Limitations - History of Present Illness INITIAL COMMENTS - FREE TEXT/NARRATIVE: pt fellwhen his bird got out and his cat was trying to catch it. He ran to help the bird and fell very hard on his rt heel. Onset: Today, Sudden, Other ( this happened about 3 pm today. ) Duration: Hour(s): Location: Reports: Lower Extremity, Right Associated Symptoms: Reports: No Other Symptoms Right Lower Foot Pain Score (Numeric/FACES): 0 - Related Data Allergies Allergy/AdvReac Type Severity Reaction Status Date / Time duloxetine [From Cymbalta] Allergy Other Verified 07/29/20 16:57 indinavir [From Crixivan] Allergy Cannot Verified 07/29/20 16:57 Remember influenza virus vaccine, Allergy Fever Verified 07/29/20 16:57 specific [Influenza Virus Vacc,Specific] lamivudine [From Epivir] Allergy unknown Verified 07/29/20 16:57 lopinavir [From Kaletra] Allergy Rash Verified 07/29/20 16:57 magnesium Allergy Headache Verified 07/29/20 16:57 metoclopramide HCl Allergy Other Verified 07/29/20 16:57 [From Reglan] nevirapine [From Viramune] Allergy unknown Verified 07/29/20 16:57 ritonavir [From Kaletra] Allergy Rash Verified 07/29/20 16:57 Sulfa (Sulfonamide Allergy Itching Verified 07/29/20 16:57 Antibiotics) alprazolam [From Xanax] AdvReac Depression Verified 07/29/20 16:57 aspirin AdvReac Other Verified 07/29/20 16:57 efavirenz [From Sustiva] AdvReac "Can't Verified 07/29/20 16:57 Walk, Bad Dreams" esomeprazole magnesium AdvReac Headache Verified 07/29/20 16:57 [From Nexium] indinavir sulfate AdvReac kidney Verified 07/29/20 16:57 [From Crixivan] stones NSAIDS (Non-Steroidal AdvReac Renal Verified 07/29/20 16:57 Anti-Inflamma Failure sertraline HCl [From Zoloft] AdvReac suicidal Verified 07/29/20 16:57 shingles vaccine Allergy Other Uncoded 08/15/21 17:02 Home Meds: Home Meds Alendronate [Fosamax] 70 mg PO Q7D@0600 01/29/14 [History] Lisinopril 2.5 mg PO DAILY 01/29/14 [History] Raltegravir [Isentress] 400 mg PO BID 01/29/14 [History] SUMAtriptan succinate [Imitrex] 100 mg PO ASDIRECTED PRN 03/16/15 [History] Emtricitabine/Tenofov Alafenam [Descovy 200-25 mg Tablet] 1 tab PO DAILY 03/30/17 [History] Finasteride 5 mg PO DAILY 11/28/17 [History] Topiramate 50 mg PO BEDTIME 11/28/17 [History] Acetaminophen/Caff/Dihydrocod [Wjsrubek-Aorg-Vfaetrbblc 320.5] 1 tab PO DAILY PRN 05/27/18 [History] Albuterol Sulfate [Proventil Hfa] 2 puff INH QID PRN 05/27/18 [History] Calcium Carbonate/Vitamin D3 [Calcium 600 + Vit D 200] 200 - 600 mg PO BID 05/27/18 [History] Acarbose [Precose] 25 mg PO TID 11/16/19 [History] Citalopram [Citalopram HBr] 20 mg PO DAILY 11/16/19 [History] Sildenafil [Viagra] 50 mg PO BEDTIME PRN 11/16/19 [History] Tamsulosin HCl [Flomax] 0.4 mg PO DAILY 11/16/19 [History] Past Medical History HEENT History: Reports: Impaired Vision, Other (See Below) Other HEENT History: wears glasses Cardiovascular History: Reports: Heart Murmur, Hypertension Respiratory History: Reports: COPD, Pneumothorax, Sleep Apnea Other Respiratory History: emphysema Gastrointestinal History: Reports: GERD, Hemorrhoids, Hepatitis, Pancreatitis, Other (See Below) Other Gastrointestinal History: gastroporesis, Farris's esophagus, hepatitis. A&B Genitourinary History: Reports: Renal Calculus, Renal Disease, STD, UTI, Recurrent, Other (See Below) Other Genitourinary History: "kidney damage". stage II kidney failure Musculoskeletal History: Reports: Back Pain, Chronic, Fracture, Osteoporosis Neurological History: Reports: Concussion, Migraines, MS, Neuropathy, Peripheral, Other (See Below) Other Neuro History: trace elements of Multiple Sclerosis, botox for migraines Psychiatric History: Reports: Anxiety, Depression Endocrine/Metabolic History: Reports: Other (See Below) Other Endocrine/Metabolic History: "hypoglycemic" Hematologic History: Reports: Anemia, Iron Deficiency Other Hematologic History: iron infusion Immunologic History: Reports: HIV, Other (See Below) Other Immunologic History: Hep A & B Oncologic (Cancer) History: Reports: None Dermatologic History: Reports: None - Infectious Disease History Infectious Disease History: Reports: Chicken Pox, Hepatitis A, Hepatitis B, HIV- Human Immunodeficiency Virus, Influenza, Measles, Mumps, Shingles - Past Surgical History Head Surgeries/Procedures: Reports: None HEENT Surgical History: Reports: None Cardiovascular Surgical History: Reports: None Respiratory Surgical History: Reports: None GI Surgical History: Reports: Colonoscopy, EGD, Hernia, Abdominal, Hernia, Inguinal, Darline Fundoplication, Other (See Below) Other GI Surgeries/Procedures: PARTIAL GASTRECTOMY AND HEMORRHOID SURGERY Male Surgical History: Reports: Kidney Stone Extraction, Prostate Biopsy, Other (See Below) Other Male Surgeries/Procedures: "scraped prostate" Endocrine Surgical History: Reports: None Neurological Surgical History: Reports: None Musculoskeletal Surgical History: Reports: None Dermatological Surgical History: Reports: None Social & Family History - Family History Family Medical History: No Pertinent Family History - Tobacco Use Tobacco Use Status *Q: Never Tobacco User - Caffeine Use Caffeine Use: Reports: Coffee Other Caffeine Use: other sometime - Alcohol Use Days Per Week of Alcohol Use: 7 Number of Drinks Per Day: 2 Total Drinks Per Week: 14 - Recreational Drug Use Recreational Drug Use: No Review of Systems - Review of Systems Review Of Systems: See Below Constitutional: Reports: No Symptoms Eyes: Reports: No Symptoms Ears: Reports: No Symptoms Nose: Reports: No Symptoms Mouth/Throat: Reports: No Symptoms Respiratory: Reports: No Symptoms Cardiovascular: Reports: No Symptoms Musculoskeletal: Reports: Other (pt has severe pain in his rt heel. ) Skin: Reports: No Symptoms Neurological: Reports: No Symptoms Psychiatric: Reports: No Symptoms ED EXAM, GENERAL - Physical Exam Exam: See Below Free Text/Narrative:: pt fell and hit his rt heel. Exam Limited By: No Limitations General Appearance: Alert, Anxious, Moderate Distress Extremities: Other (pt is very tender over the rt heel. ) Neurological: Alert, Oriented, Inattentive Psychiatric: Anxious Course - Vital Signs Last Recorded V/S: Last Vital Signs Temp 36 C L 08/15/21 17:20 Pulse 101 H 08/15/21 17:20 Resp 16 08/15/21 17:20 BP 124/95 H 08/15/21 17:20 Pulse Ox 98 08/15/21 17:20 - Orders/Labs/Meds Orders: Active Orders 24 hr Category Date Time Status Calcaneous Rt [CR] Stat Exams 08/15/21 18:28 Taken Foot Comp Min 3V Rt [CR] Stat Exams 08/15/21 18:28 Taken Meds: Medications Discontinued Medications Generic Name Dose Route Start Last Admin Trade Name Freq PRN Reason Stop Dose Admin Acetaminophen 1,000 mg 08/15/21 17:30 08/15/21 17:36 Acetaminophen 500 Mg Tab PO 08/15/21 17:31 1,000 mg ONETIME ONE Administration - Re-Assessments/Exams Free Text/Narrative Re-Assessment/Exam: 08/15/21 21:11 xray was obtained which did not show a fracture. Departure - Departure Time of Disposition: 21:06 Disposition: Home, Self-Care 01 Condition: Fair Clinical Impression: Contusion of right heel - Discharge Information Referrals: Cathleen Fuchs MD [Primary Care Provider] - Forms: ED Department Discharge Care Plan Goals: wrap with maria luz wrap, crutches, elevate when sitting, cool pack see own physian if persistent discomfort, motrin 600mg q6h prn for pain.and tylenol Sepsis Event Note (ED) - Evaluation Sepsis Screening Result: No Definite Risk - Focused Exam Vital Signs: Vital Signs Temp Pulse Resp BP Pulse Ox 08/15/21 17:20 36 C L 101 H 16 124/95 H 98 - My Orders Last 24 Hours: My Active Orders 08/15/21 18:28 Calcaneous Rt [CR] Stat Foot Comp Min 3V Rt [CR] Stat - Assessment/Plan Last 24 Hours: My Active Orders 08/15/21 18:28 Calcaneous Rt [CR] Stat Foot Comp Min 3V Rt [CR] Stat
--- NOTE | 2021-08-16 09:06 | CR ---
FOOT RIGHT 3 views CLINICAL HISTORY:Fall FINDINGS:No fracture or dislocation is identified. Articular surfaces are smooth. There is minimal periarticular spurring in the toes. Impression: No fracture or dislocation Calcaneous Rt CLINICAL HISTORY: Fall COMPARISON: None FINDINGS: Bone alignment is anatomic. Bone mineralization is adequate. No acute fracture identified. Surrounding soft tissues are intact. IMPRESSION: No acute process.
== END 2021-08-15 21:28 | disposition home or self-care (01) ==
LOC: JP.ED 15:21
DX: S90.31XA Contusion of right foot, initial encounter (principal); J44.9 Chronic obstructive pulmonary disease, unspecified; I12.9 Hypertensive chronic kidney disease with stage 1 through stage 4 chronic kidney disease, or unspecified chronic kidney disease; N18.9 Chronic kidney disease, unspecified; Z79.899 Other long term (current) drug therapy; Z88.2 Allergy status to sulfonamides; Z88.7 Allergy status to serum and vaccine; W18.09XA Striking against other object with subsequent fall, initial encounter
CPT/HCPCS: 73630; 73650; 99283; A9270

== ENCOUNTER 2021-12-16 16:02 | Emergency (ER) | payer MEDICARE, OTHER ==
[2021-12-16 16:14] VITALS: BP 145/96; PULSE 112
== END 2021-12-16 18:15 | disposition home or self-care (01) ==
LOC: JP.ED 16:02
DX: S20.212A Contusion of left front wall of thorax, initial encounter (principal); I12.9 Hypertensive chronic kidney disease with stage 1 through stage 4 chronic kidney disease, or unspecified chronic kidney disease; N18.30 Chronic kidney disease, stage 3 unspecified; J44.9 Chronic obstructive pulmonary disease, unspecified; K21.9 Gastro-esophageal reflux disease without esophagitis; B20 Human immunodeficiency virus [HIV] disease; Z88.7 Allergy status to serum and vaccine; Z88.8 Allergy status to other drugs, medicaments and biological substances; Z88.2 Allergy status to sulfonamides; Z79.899 Other long term (current) drug therapy; W00.0XXA Fall on same level due to ice and snow, initial encounter
CPT/HCPCS: 71250; 99282; 99283-25

== ENCOUNTER 2022-05-23 23:58 | Emergency (ER) | payer MEDICARE, OTHER ==
[2022-05-24] MEDS ORDERED: Lisinopril 5 MG Tab PO ONE (00:57)
[2022-05-24 01:37] VITALS: BP 138/88; PULSE 90
== END 2022-05-24 01:44 | disposition home or self-care (01) ==
LOC: JP.ED 23:58
DX: U07.1 COVID-19 (principal); R53.1 Weakness; E83.51 Hypocalcemia; J44.9 Chronic obstructive pulmonary disease, unspecified; I10 Essential (primary) hypertension; Z88.8 Allergy status to other drugs, medicaments and biological substances; Z88.7 Allergy status to serum and vaccine; Z88.2 Allergy status to sulfonamides; Z88.6 Allergy status to analgesic agent; Z79.899 Other long term (current) drug therapy; Z87.891 Personal history of nicotine dependence
CPT/HCPCS: 36415; 80048; 82550; 85025; 99284; A9270; U0002